=== PATIENT | female | born 1935 | race Caucasian/White ===

== ENCOUNTER 2022-08-24 11:30 | Outpatient (CLI) | payer MEDICARE, SELFPAY ==
[2022-08-24 13:42] LABS: Chloride* 104 mmol/L (96-114); Potassium* 4.8 mmol/L (3.6-5.1); Sodium* 140 mmol/L (135-149)
[2022-08-24 13:45] LABS: Blood Urea Nitrogen* 16 mg/dL (7-30); Carbon Dioxide* 30 mmol/L (20-32); Cholesterol* 251 mg/dL (90-199); Creatinine* 0.9 mg/dL (0.5-1.5); Estimated Glomerular Filt Rate 63 ml/min; Glucose* 89 mg/dL (60-115)
[2022-08-24 13:46] LABS: Calcium* 9.6 mg/dL (8.4-10.6); HDL Cholesterol* 57 mg/dL (>=50); LDL Cholesterol Calculated 164 mg/dL (<100); Triglycerides* 150 mg/dL (40-149)
== END 2022-08-24 11:31 | disposition home or self-care (01) ==
PROVIDERS: PCP Emergency Medicine; Visit Provider Emergency Medicine
DX: Z00.00 Encounter for general adult medical examination without abnormal findings (principal); E78.5 Hyperlipidemia, unspecified
CPT/HCPCS: 80048; 80061

== ENCOUNTER 2022-09-02 13:58 | Outpatient (CLI) | payer MEDICARE, SELFPAY ==
--- NOTE | 2022-09-02 14:30 | CRLHL7_ITS ---
For Patients: As a result of the Cures Act, medical imaging exams and procedure reports are released immediately into your electronic medical record. You may view this report before your referring provider. If you have questions, please contact your health care provider. DXA BONE MINERAL DENSITY STUDY, 09/02/2022 Reason for exam: Osteoporosis. Current height (inches): 61.0 Weight (lbs.): 140.0 Menopause age: 52 Ethnicity: White 1. Have you had a previous hip or vertebral fracture? No. 2. Have you had any fractures during your adult life which did not result from significant trauma (e.g., auto accident)? No. 3. Did either of your parents have a hip fracture? No. 4. Do you smoke? No. 5. Have you ever taken Glucocorticoids? No. 6. Do you have rheumatoid arthritis? No. 7. 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 8. Do you drink 3 or more alcoholic drinks per day? No. 9. Are you being treated for osteoporosis? No. 10. Have you ever taken any of the following medications: Actonel, Evista, Fosamax, Miacalcin, Reclast, Boniva, Forteo, HRT (i.e., estrogen/hormone therapy), Protelos, Prolia, Vitamin D, Calcium, other ??? please specify. ANSWER: Yes; Fosamax, vitamin D, calcium. 11. Do you have any of the following medical conditions: Anorexia or bulimia, asthma or emphysema, end stage renal disease, hyperparathyroidism, any seizure disorders, cancer, inflammatory bowel diseases, hysterectomy, other ??? please specify. ANSWER: Yes; hysterectomy. 12. What was your maximum height (inches)? 62. 13. Do you perform weight bearing exercise regularly? No. 14. Do you regularly consume dairy products? Yes. 15. Do you drink caffeinated beverages? Yes. 16. At what age did your period start? 14. 17. Are you premenopausal? No. 18. How many full-term pregnancies have you had? 3. 19. Have you ever missed your period for more than 6 months in a row (not including or menopause)? No. TECHNIQUE: Bone mineral density study was performed using the [employer]. FINDINGS: The results of the study expressed as bone mineral density (BMD) are as follows: Lumbar Spine L2 to L4: BMD: 0.934 g/cm2. T-score: -1.3. Z-score: 1.6. Neck Left: BMD: 0.619 g/cm2. T-score: -2.1. Z-score: 0.4. Right: BMD: 0.627 g/cm2. T-score: -2.0. Z-score: 0.5. Total Left: BMD: 0.746 g/cm2. T-score: -1.6. Z-score: 0.7. Right: BMD: 0.814 g/cm2. T-score: -1.0. Z-score: 1.3. IMPRESSION: Osteopenia. FRAX 10-year Fracture Risk Major Osteoporotic Fracture: 16% Hip Fracture: 5.0% Reported Risk Factors: [place] () Neck BMD = 0.619, BMI = 26.5, secondary osteoporosis. TED FINE M.D. Diagnostic Radiologist [email or web address] Transcribed: 5:[address]/Dictated by: Ted Fine MD @ 09/02/2022 3:43:00 PM (Electronically Signed)
== END 2022-09-02 13:59 | disposition home or self-care (01) ==
LOC: RAD 13:59
PROVIDERS: PCP Emergency Medicine; Visit Provider Emergency Medicine
DX: M81.0 Age-related osteoporosis without current pathological fracture (principal); M85.89 Other specified disorders of bone density and structure, multiple sites
CPT/HCPCS: 77080

== ENCOUNTER 2023-07-21 14:40 | Outpatient (CLI) | payer MEDICARE, SELFPAY ==
--- NOTE | 2023-07-21 15:00 | CRLHL7_ITS ---
For Patients: As a result of the Cures Act, medical imaging exams and procedure reports are released immediately into your electronic medical record. You may view this report before your referring provider. If you have questions, please contact your health care provider. INDICATION: Disorder of the arteries. COMPARISON: None available TECHNIQUE: The carotid circulations and the vertebral arteries in the neck were examined using real-time mejia scale imaging (B mode 2D), color flow Doppler and spectral analysis. Degrees of stenosis were determined using SRU 2002 Consensus Panel Criteria. FINDINGS: On the right, the peak systolic internal carotid artery velocity is 80 centimeters per second with a ICA/CCA ratio of 0.96. There is no plaque in the bifurcation. The findings indicate a normal right carotid bifurcation. On the left, the peak systolic internal carotid artery velocity is 89 centimeters per second with a ICA/CCA ratio of 0.98. There is mild calcification along the anterior wall of the origin of the left internal carotid artery with less than 50 percent stenosis visually. The findings indicate less than 50 percent stenosis of the origin of the left internal carotid artery. There is antegrade flow in both vertebral arteries. IMPRESSION: Normal right carotid bifurcation. Less than 50 percent stenosis of the origin of the left internal carotid artery. Dictated by Itz Anaya MD @ 07/21/2023 8:55:11 PM (Electronically Signed)
== END 2023-07-21 14:41 | disposition home or self-care (01) ==
PROVIDERS: PCP Emergency Medicine; Visit Provider Emergency Medicine
DX: I77.9 Disorder of arteries and arterioles, unspecified (principal); I65.22 Occlusion and stenosis of left carotid artery
CPT/HCPCS: 93880

== ENCOUNTER 2024-08-02 09:15 | Outpatient (CLI) | payer MEDICARE, SELFPAY | END 2024-08-02 09:16 | disposition home or self-care (01) | PROVIDERS: PCP Emergency Medicine; Visit Provider Emergency Medicine | DX: M79.675 Pain in left toe(s) (principal) | CPT/HCPCS: 80048; 84550 ==

== ENCOUNTER 2024-08-02 11:18 | Outpatient (CLI) | payer MEDICARE, SELFPAY ==
--- NOTE | 2024-08-02 11:30 | CRLHL7_ITS ---
For Patients: As a result of the Century Cures Act, medical imaging exams and procedure reports are released immediately into your electronic medical record. You may view this report before your referring provider. If you have questions, please contact your health care provider. BILATERAL SCREENING MAMMOGRAM WITH COMPUTER-AIDED DETECTION AND TOMOSYNTHESIS TECHNIQUE: CC and MLO views were obtained. These mammographic images have been obtained using full-field digital technique. These mammographic images were interpreted with the benefit of computer-aided detection. Breast Tomosynthesis was used in this interpretation. COMPARISON FILM: 09/01/21, 08/28/20, 07/29/17. FINDINGS: There are scattered areas of fibroglandular density. IMPRESSION: There is no radiographic evidence for malignancy. ASSESSMENT: BI-RADS Category 2: Benign RECOMMENDATION: Routine screening mammogram in 1 year. A lay language report of this examination will be provided to the patient. Ted Infante M.D. Diagnostic Radiologist [email or web address] SP/Dictated by: Ted Infante MD @ 08/03/2024 11:55:00 AM (Electronically Signed)
== END 2024-08-02 11:19 | disposition home or self-care (01) ==
PROVIDERS: PCP Emergency Medicine; Visit Provider Emergency Medicine
DX: Z12.31 Encounter for screening mammogram for malignant neoplasm of breast (principal)
CPT/HCPCS: 77063; 77067; 80048; 84550

== ENCOUNTER 2025-06-11 08:40 | Outpatient (CLI) | payer MEDICARE, SELFPAY | END 2025-06-11 08:41 | disposition home or self-care (01) | LOC: NFLDREF 06-12 15:30 | PROVIDERS: PCP Emergency Medicine; Referring Provider Emergency Medicine; Visit Provider Emergency Medicine | DX: R20.2 Paresthesia of skin (principal); I10 Essential (primary) hypertension; M85.9 Disorder of bone density and structure, unspecified; E78.2 Mixed hyperlipidemia | CPT/HCPCS: 80048; 80061; 82306; 82607; 84443 ==

== ENCOUNTER 2025-06-21 13:45 | Outpatient (CLI) | payer MEDICARE, SELFPAY ==
--- NOTE | 2025-06-21 14:00 | CRLHL7_ITS ---
For Patients: As a result of the Century Cures Act, medical imaging exams and procedure reports are released immediately into your electronic medical record. You may view this report before your referring provider. If you have questions, please contact your health care provider. DXA BONE MINERAL DENSITY STUDY Reason for exam: Screening for osteoporosis. Current height (in): 61. Weight (lb): 127. Menopause age: 52. Ethnicity: White. 1. Have you had a previous hip or vertebral fracture? No. 2. Have you had any fractures during your adult life which did not result from significant trauma (e.g., auto accident)? No. 3. Did either of your parents have a hip fracture? No. 4. Do you smoke? No. 5. Have you ever taken Glucocorticoids? No. 6. Do you have rheumatoid arthritis? No. 7. 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 8. Do you drink 3 or more alcoholic drinks per day? No. 9. Are you being treated for osteoporosis? No. 10. Have you ever taken any of the following medications: Actonel, Evista, Fosamax, Miacalcin, Reclast, Boniva, Forteo, HRT (i.e. estrogen/hormone therapy), Protelos, Prolia, Vitamin D, Calcium, other ??? please specify. ANSWER: Yes, Fosamax (i.e., alendronate), vitamin D, and calcium. 11. Do you have any of the following medical conditions: Anorexia or bulimia, asthma or emphysema, end stage renal disease, hyperparathyroidism, any seizure disorders, cancer, inflammatory bowel diseases, hysterectomy, other ??? please specify. ANSWER: Yes, hysterectomy. 12. What was your maximum height (inches)? 62. 13. Do you perform weight bearing exercise regularly? No. 14. Do you regularly consume dairy products? Yes. 15. Do you drink caffeinated beverages? Yes. 16. At what age did your period start? 14. 17. Are you premenopausal? No. 18. How many full-term pregnancies have you had? 3. 19. Have you ever missed your period for more than 6 months in a row (not including or menopause)? No. TECHNIQUE: Bone mineral density study was performed using the [employer]. FINDINGS: The results of the study expressed as bone mineral density (BMD) are as follows: Lumbar spine L2 to L4: BMD: 0.911 g/cm2. T-score: -1.5. Z-score: 1.4. Neck Left: BMD: 0.597 g/cm2. T-score: -2.3. Z-score: 0.2. Right: BMD: 0.603 g/cm2. T-score: -2.2. Z-score: 0.3. Total Left: BMD: 0.757 g/cm2. T-score: -1.5. Z-score: 0.8. Right: BMD: 0.864 g/cm2. T-score: -0.6. Z-score: 1.7. IMPRESSION: Osteopenia. *Comparison exams done prior to 04/2020 were performed on different unit, [employer]. COMPARISON: Compared with scan of 09/02/2022, the bone mineral density has decreased by 2.5 percent at the spine and increased by 3.9 percent at the hip. FRAX 10-year Fracture Risk Major Osteoporotic Fracture: 15 percent Hip Fracture: 5.1 percent Reported Risk Factors: [place] () Neck BMD=0.597, BMI=24.0, secondary osteoporosis Ted Infante M.D. Diagnostic Radiologist [email or web address]/Dictated by: Ted Infante MD @ 06/22/2025 7:18:00 AM (Electronically Signed)
== END 2025-06-21 13:46 | disposition home or self-care (01) ==
LOC: RAD 13:45
PROVIDERS: PCP Emergency Medicine; Visit Provider Emergency Medicine
DX: Z13.820 Encounter for screening for osteoporosis (principal); M85.89 Other specified disorders of bone density and structure, multiple sites
CPT/HCPCS: 77080

== ENCOUNTER 2025-08-24 16:43 | Outpatient (CLI) | payer MEDICARE, SELFPAY | END 2025-08-24 16:44 | disposition home or self-care (01) | LOC: NFLDREF 08-27 18:41 | PROVIDERS: Visit Provider Family Medicine | DX: N39.0 Urinary tract infection, site not specified (principal) | CPT/HCPCS: 87086 ==